=== PATIENT | male | born 1950 | race Caucasian/White ===

== ENCOUNTER 2017-04-17 07:57 | Day surgery (SDC) | payer OTHER, MEDICARE ==
[~2017-04-17] VITALS: Ht 177.8 cm; Wt 72.6 kg
[~2017-04-17 07:57] MED LIST: MOTRIN800 MG PO
[2017-04-17] MEDS ORDERED: NO HOME MEDICATIONS (08:29)
== END 2017-04-17 10:15 | disposition home or self-care (01) ==
LOC: CATH 07:57
DX: Z45.2 Encounter for adjustment and management of vascular access device (principal); I87.8 Other specified disorders of veins; C64.9 Malignant neoplasm of unspecified kidney, except renal pelvis
CPT/HCPCS: C1752; C1894; J0690; J1644; J2250; J3010; S0020

== ENCOUNTER → 2017-08-09 | Outpatient (CLI) | payer OTHER, MEDICARE ==
[~2017-08-09] MED LIST changes: +NO HOME MEDICATIONS
== END | disposition home or self-care (01) ==
LOC: AMB 08:30
DX: I87.8 Other specified disorders of veins (principal); Z45.2 Encounter for adjustment and management of vascular access device; Z92.21 Personal history of antineoplastic chemotherapy

== ENCOUNTER → 2017-11-05 | Outpatient (CLI) | payer OTHER, MEDICARE ==
[~2017-11-05] MED LIST changes: +ATORVASTATIN CA20 MG PO; +CLONAZEPAM0.5 MG PO; +TAMSULOSIN HCL0.4 MG PO; +VOTRIENT200 MG PO
== END | disposition home or self-care (01) ==
LOC: RAD 09:25
PROC: 07BJ3ZX Excision of Left Inguinal Lymphatic, Percutaneous Approach, Diagnostic (ICD-10-PCS; principal; 2017-11-05)
DX: C77.4 Secondary and unspecified malignant neoplasm of inguinal and lower limb lymph nodes (principal); Z85.528 Personal history of other malignant neoplasm of kidney; Z90.5 Acquired absence of kidney
CPT/HCPCS: 76942; 88305; 88341 TC; 88342 TC